=== PATIENT | female | born 1960 | race Two or more races ===

== ENCOUNTER 2019-10-10 15:53 | Inpatient (IN) | payer OTHER ==
[~2019-10-10] VITALS: Ht 172.7 cm; Wt 68.0 kg
[2019-10-10] MEDS ORDERED: AVAPRO150 MG PO (16:27)
--- NOTE | 2019-10-10 16:27 | NUR ---
PACIENTE ALERTA ORIENTADA X 3 REFIERE TENER UN EPISODIO DE CONVULCION ELISEO A LAS 2:30PM. Y OTRA A LAS 3:15PM , REFIERE TENER ADORMESIMIENTO EN AREA DE SCOOBY Y LUEGO DEL EPISODIO DNO SE ACUERDA
--- NOTE | 2019-10-10 17:51 | NUR ---
EVALUA PTE. SE ORIENTA A PTE SOBRE TX MEDICO. PTE REFIERE COMPRENDER. SE REALIZAN MUESTRAS DE LABORATORIO BAJO MEDIDAS ASEPTICAS. SE NOTIFICA CT.
== END 2019-10-12 16:05 | disposition home or self-care (01) | DRG 69 ==
LOC: ER 15:53 → SEC-K 19:16 → SURH 19:16
PROVIDERS: ADMIT Internal Medicine
PROC: B030YZZ Magnetic Resonance Imaging (MRI) of Brain using Other Contrast (ICD-10-PCS; principal; 2019-10-10)
PROC: BW28ZZZ Computerized Tomography (CT Scan) of Head (ICD-10-PCS; 2019-10-10)
PROC: B345ZZZ Ultrasonography of Bilateral Common Carotid Arteries (ICD-10-PCS; 2019-10-10)
PROC: B246ZZZ Ultrasonography of Right and Left Heart (ICD-10-PCS; 2019-10-10)
PROC: 4A12X4Z Monitoring of Cardiac Electrical Activity, External Approach (ICD-10-PCS; 2019-10-10)
PROC: BW4FZZZ Ultrasonography of Neck (ICD-10-PCS; 2019-10-11)
DX: I67.82 Cerebral ischemia (principal); I50.21 Acute systolic (congestive) heart failure; G45.8 Other transient cerebral ischemic attacks and related syndromes; I08.3 Combined rheumatic disorders of mitral, aortic and tricuspid valves; I11.0 Hypertensive heart disease with heart failure; E04.1 Nontoxic single thyroid nodule; Z79.01 Long term (current) use of anticoagulants
CPT/HCPCS: 70545

== ENCOUNTER 2019-11-13 10:03 | Outpatient (CLI) | payer OTHER ==
[~2019-11-13 10:03] MED LIST: AVAPRO150 MG PO
== END 2019-11-13 10:06 | disposition home or self-care (01) ==
LOC: SONOGRAMA 10:03
DX: E04.1 Nontoxic single thyroid nodule (principal)

== ENCOUNTER 2020-03-04 17:43 | Emergency (ER) | payer OTHER ==
[~2020-03-04] VITALS: Ht 172.7 cm; Wt 68.0 kg
== END 2020-03-04 20:00 | disposition home or self-care (01) ==
LOC: ER 17:43
DX: R07.89 Other chest pain (principal)